=== PATIENT | male | born 1965 | race Caucasian/White ===

== ENCOUNTER 2024-03-02 15:59 | Emergency (ER) | payer OTHER ==
[~2024-03-02] VITALS: Ht 193 cm; Wt 162.7 kg
[~2024-03-02 15:59] MED LIST: MEDROL 4MG DOSPA4 MG PO
[2024-03-02 16:05] VITALS: BP 141/86; TEMP 98.6
[2024-03-02 18:20] VITALS: PULSE 80
== END 2024-03-02 18:21 | disposition home or self-care (01) ==
LOC: COL.ER 15:59
DX: M25.571 Pain in right ankle and joints of right foot (principal); M25.561 Pain in right knee; M25.532 Pain in left wrist; R07.81 Pleurodynia; W18.30XA Fall on same level, unspecified, initial encounter